=== PATIENT | female | born 1950 | race Caucasian/White ===

== ENCOUNTER 2025-02-21 13:21 | Inpatient (IN) | payer OTHER ==
[~2025-02-21] VITALS: Ht 157.5 cm; Wt 78.2 kg
[2025-02-21 13:41] LABS: PLATELET COUNT (AUTO) 126 K/uL (179-408); RED BLOOD CELL COUNT(AUTO) 3.06 MIL/uL (3.63-4.92); RED CELL DISTRIBUTION WIDTH 15.1 % (12.3-17.7); WHITE BLOOD COUNT (AUTO) 6.5 K/uL (3.8-11.8)
[2025-02-21 13:51] LABS: CREATININE 1.4 mg/dL (0.6-1.3); SODIUM SERUM 136 mmol/L (136-145); UREA NITROGEN, BLOOD 17 mg/dL (7-18)
[2025-02-21 13:57] LABS: ASPARTATE AMINOTRANSFERASE 17 U/L (15-37); TOTAL PROTEIN, SERUM 6.5 g/dL (6.4-8.2)
[2025-02-21] MEDS ORDERED: ONDANSETRON 4 MG/2 ML VIAL ONE (14:08)
[2025-02-21] MEDS: ONDANSETRON 4 MG/2 ML VIAL IV ONE (14:18)
[2025-02-21] MEDS ORDERED: PRAV40TA3 PO (14:46)
[2025-02-21] MEDS ORDERED: FERR-68 PO (14:46)
[2025-02-21] MEDS ORDERED: FURO-152 PO (14:46)
[2025-02-21] MEDS ORDERED: TRAZ150T75 PO (14:46)
[2025-02-21] MEDS ORDERED: DOCU-141 PO (14:46)
[2025-02-21] MEDS ORDERED: LEVO175T7 PO (14:46)
[2025-02-21] MEDS ORDERED: LEVE500T9 PO (14:46)
[2025-02-21] MEDS ORDERED: SODI650T PO (14:46)
[2025-02-21] MEDS ORDERED: PIOG30TA10 PO (14:46)
[2025-02-21] MEDS ORDERED: ASPI81TA31 PO (14:46)
[2025-02-21] MEDS ORDERED: HYDR100T27 PO (14:46)
[2025-02-21] MEDS ORDERED: CALC-1258 PO (14:46)
[2025-02-21] MEDS ORDERED: CLON1PAT TD (14:46)
[2025-02-21] MEDS ORDERED: CLOP75TA15 PO (14:46)
[2025-02-21] MEDS ORDERED: MAGN64TA7 PO (14:46)
[2025-02-21] MEDS ORDERED: AMMO385C4 TP (14:46)
[2025-02-21] MEDS ORDERED: ACET-73 PO (14:46)
[2025-02-21] MEDS ORDERED: FOLI1TAB27 PO (14:46)
[2025-02-21] MEDS ORDERED: ARIP10TA9 PO (14:46)
[2025-02-21] MEDS ORDERED: CLON0.1T PO (14:46)
[2025-02-21] MEDS ORDERED: CITA10TA9 PO (14:46)
[2025-02-21] MEDS ORDERED: ISOS60TA72 PO (14:46)
[2025-02-21] MEDS ORDERED: SENN-18 PO (14:46)
[2025-02-21] MEDS ORDERED: NIFE90TA61 PO (14:46)
[2025-02-21] MEDS ORDERED: GLIP2.5T3 PO (14:46)
[2025-02-21] MEDS ORDERED: DOXA2TAB2 PO ×2 (14:46)
[2025-02-21 16:48] VITALS: BP 196/67
[2025-02-21] MEDS ORDERED: MAGNESIUM CHLORIDE PO SCH (17:00)
[2025-02-21] MEDS ORDERED: SENNOSIDES 1 TABLET PO PRN (17:00)
[2025-02-21] MEDS: CLONIDINE HCL 0.1 MG TABLET PO SCH (17:20)
[2025-02-21] MEDS: NIFEdipine XL 90 MG TABSR PO SCH (17:20)
[2025-02-21] MEDS ORDERED: CLONIDINE-TTS 1 PATCH TD ONE (17:30)
[2025-02-21] MEDS: CLONIDINE-TTS 1 PATCH TD SCH (18:33)
[2025-02-21] MEDS ORDERED: EPOE200012 SUBCUT (19:20)
[2025-02-21] MEDS ORDERED: MENTHOL 4% TOP (19:22)
[2025-02-21 19:50] VITALS: BP 143/76; TEMP 99.3; O2SAT 99
[2025-02-21] MEDS ORDERED: ONDANSETRON 4 MG/2 ML VIAL IV PRN (21:00)
[2025-02-21] MEDS ORDERED: TEMAZEPAM 15 MG CAPSULE PO PRN (21:00)
[2025-02-21] MEDS ORDERED: ACETAMINOPHEN 325 MG TABLET PO PRN (21:00)
[2025-02-21] MEDS: ATORVASTATIN 20 MG TABLET PO SCH (22:20)
[2025-02-21] MEDS: TRAZODONE 50 MG TABLET PO SCH (22:21)
[2025-02-21] MEDS: DOXAZOSIN 2 MG TABLET PO SCH (22:21)
[2025-02-22 00:03] VITALS: BP 159/55; TEMP 98.7; O2SAT 95
[2025-02-22 04:59] VITALS: TEMP 98.8; O2SAT 96
[2025-02-22 06:19] LABS: PLATELET COUNT (AUTO) 123 K/uL (179-408); RED BLOOD CELL COUNT(AUTO) 2.73 MIL/uL (3.63-4.92); RED CELL DISTRIBUTION WIDTH 15.1 % (12.3-17.7); WHITE BLOOD COUNT (AUTO) 6.4 K/uL (3.8-11.8)
[2025-02-22] MEDS: PANTOPRAZOLE SODIUM 40 MG TABLET.DR PO SCH (06:32)
[2025-02-22 06:37] LABS: ASPARTATE AMINOTRANSFERASE 15 U/L (15-37); CREATININE 2.3 mg/dL (0.6-1.3); IRON, SERUM 70 ug/dL (50-175); SODIUM SERUM 136 mmol/L (136-145); TOTAL PROTEIN, SERUM 5.6 g/dL (6.4-8.2); UREA NITROGEN, BLOOD 27 mg/dL (7-18)
[2025-02-22 07:37] VITALS: BP 96/60; TEMP 98.5; O2SAT 99
[2025-02-22] MEDS ORDERED: PIOGLITAZONE HCL PO SCH (09:00)
[2025-02-22] MEDS ORDERED: DOXAZOSIN 2 MG TABLET PO SCH (09:00)
[2025-02-22] MEDS: LEVOTHYROXINE SODIUM 175 MCG TABLET PO SCH (09:28)
[2025-02-22] MEDS: PIOGLITAZONE HCL 15 MG TABLET PO SCH (09:29)
[2025-02-22] MEDS: ARIPIPRAZOLE 10 MG TABLET PO SCH (09:29)
[2025-02-22] MEDS: CLOPIDOGREL 75 MG TABLET PO SCH (09:29)
[2025-02-22] MEDS: MAGNESIUM OXIDE 400 MG TABLET PO SCH (09:30)
[2025-02-22] MEDS: FOLIC ACID 1 MG TABLET PO SCH (09:31)
[2025-02-22] MEDS: FERROUS SULFATE 325 MG TABEC PO SCH (09:31)
[2025-02-22] MEDS: DOCUSATE SODIUM 100 MG CAPSULE PO SCH (09:31)
[2025-02-22] MEDS: CALCIUM CARB/VITAMIN D 600-400 MG TABLET PO SCH (09:31)
[2025-02-22] MEDS: ASPIRIN EC 81 MG TABLET.DR PO SCH (09:31)
[2025-02-22] MEDS: CITALOPRAM 10 MG TABLET PO SCH (09:32)
[2025-02-22] MEDS: ISOSORBIDE MONONITRATE 30 MG TAB.SR.24H PO SCH (09:34)
[2025-02-22 11:02] VITALS: BP 169/58; TEMP 98.7; O2SAT 99
[2025-02-22 15:47] VITALS: BP 108/40; TEMP 98.1; O2SAT 98
[2025-02-22 19:40] VITALS: BP 131/59; TEMP 98.7; O2SAT 98
[2025-02-23] VITALS (7 sets, daily range): BP systolic 101–173; BP diastolic 37–54; TEMP 97.3–98.8; O2SAT 94–99
[2025-02-23] MEDS: LEVOTHYROXINE SODIUM 200 MCG TABLET PO SCH (06:16)
[2025-02-23 06:45] LABS: PLATELET COUNT (AUTO) 126 K/uL (179-408); RED BLOOD CELL COUNT(AUTO) 2.67 MIL/uL (3.63-4.92); RED CELL DISTRIBUTION WIDTH 14.9 % (12.3-17.7); WHITE BLOOD COUNT (AUTO) 6.9 K/uL (3.8-11.8)
[2025-02-23 06:51] LABS: CREATININE 3.3 mg/dL (0.6-1.3); SODIUM SERUM 135 mmol/L (136-145); UREA NITROGEN, BLOOD 41 mg/dL (7-18)
[2025-02-23] MEDS ORDERED: EPOETIN ALFA 10,000 UNITS/ML VIAL SQ ONE (10:15)
[2025-02-23] MEDS: EPOETIN ALFA-EPBX 10,000 UNIT/ML VIAL SQ ONE (10:41)
[2025-02-23] MEDS ORDERED: HYDR50TA68 PO (10:53)
[2025-02-23] MEDS ORDERED: PIOG15TA8 PO (10:53)
[2025-02-23] MEDS ORDERED: PANT40TA49 PO (10:53)
[2025-02-23] MEDS ORDERED: LEVE500T9 PO (10:53)
[2025-02-23] MEDS ORDERED: ARIP10TA9 PO (10:53)
[2025-02-23] MEDS ORDERED: DOCU-141 PO (10:53)
[2025-02-23] MEDS ORDERED: DOXA2TAB PO (10:53)
[2025-02-23] MEDS ORDERED: FERR325T28 PO (10:53)
[2025-02-23] MEDS ORDERED: CLON0.1T PO (10:53)
[2025-02-23] MEDS ORDERED: NIFE90TA61 PO (10:53)
[2025-02-23] MEDS ORDERED: SENN-175 PO (10:53)
[2025-02-23] MEDS ORDERED: CALC-11 PO (10:53)
[2025-02-23] MEDS ORDERED: ATOR20TA PO (10:53)
[2025-02-23] MEDS ORDERED: CLOP75TA33 PO (10:53)
[2025-02-23] MEDS ORDERED: CITA10TA9 PO (10:53)
[2025-02-23] MEDS ORDERED: ISOS30TA86 PO (10:53)
[2025-02-23] MEDS ORDERED: LEVO200T PO (10:53)
[2025-02-23] MEDS ORDERED: FOLI1TAB94 PO (10:53)
[2025-02-23] MEDS ORDERED: ACET325T53 PO (10:53)
[2025-02-23] MEDS ORDERED: ASPI-618 PO (10:53)
[2025-02-23] MEDS ORDERED: MAGN400T30 PO (10:53)
[2025-02-23] MEDS ORDERED: TRAZ-252 PO (10:53)
[2025-02-23] MEDS: SOD FERRIC GLUC COMPLX/SUCROSE 125 MG in IV NORMAL SALINE 100 ML IV SCH (14:16)
[2025-02-24] MEDS: TEMAZEPAM 7.5 MG CAPSULE PO PRN (01:01)
[2025-02-24 05:20] VITALS: BP 169/65; TEMP 97.8; O2SAT 96
[2025-02-24 07:40] VITALS: BP 185/65; TEMP 97.8; O2SAT 97
[2025-02-24 09:21] VITALS: BP 148/48; TEMP 97.8; O2SAT 97
[2025-02-24] MEDS ORDERED: DOXAZOSIN 1 MG TABLET PO SCH (21:00)
[2025-02-28] MEDS ORDERED: CLONIDINE-TTS 1 PATCH TD SCH (09:00)
== END 2025-02-24 10:27 | DRG 280 ==
LOC: ER 13:21 → TELE3 15:57
PROVIDERS: ADMIT Nurse Practitioner Acute Care; ATTEND Internal Medicine
PROC: 5A1D70Z Performance of Urinary Filtration, Intermittent, Less than 6 Hours Per Day (ICD-10-PCS; principal; 2025-02-23)
DX: I16.0 Hypertensive urgency (principal); N18.6 End stage renal disease; I21.A1 Myocardial infarction type 2; E44.0 Moderate protein-calorie malnutrition; D69.6 Thrombocytopenia, unspecified; D63.1 Anemia in chronic kidney disease; E88.09 Other disorders of plasma-protein metabolism, not elsewhere classified; I13.11 Hypertensive heart and chronic kidney disease without heart failure, with stage 5 chronic kidney disease, or end stage renal disease; Z99.2 Dependence on renal dialysis; E03.9 Hypothyroidism, unspecified; E66.9 Obesity, unspecified; E11.22 Type 2 diabetes mellitus with diabetic chronic kidney disease; G40.909 Epilepsy, unspecified, not intractable, without status epilepticus; F32.9 Major depressive disorder, single episode, unspecified; R00.1 Bradycardia, unspecified; Z68.29 Body mass index [BMI] 29.0-29.9, adult; I25.10 Atherosclerotic heart disease of native coronary artery without angina pectoris; Z98.61 Coronary angioplasty status; Z86.73 Personal history of transient ischemic attack (TIA), and cerebral infarction without residual deficits; Z79.899 Other long term (current) drug therapy; Z79.84 Long term (current) use of oral hypoglycemic drugs; Z79.82 Long term (current) use of aspirin; Z79.02 Long term (current) use of antithrombotics/antiplatelets; E78.5 Hyperlipidemia, unspecified; E87.6 Hypokalemia; R51.9 Headache, unspecified
CPT/HCPCS: 36415; 70450; 71045; 83550; 83605; 83735; 84100; 84443; 84484; 85025; 85730; 87040; 87350; 93307; G0378; J0360; J0885; J2405; J2916; J7040